=== PATIENT | male | born 1970 | race Caucasian/White ===

== ENCOUNTER 2018-02-03 09:35 | Emergency (ER) | payer MEDICAID ==
[2018-02-03] MEDS ORDERED: Sodium Chloride 0.9% 1,000 ML IV ONE ×3 (10:12→12:36)
[2018-02-03] MEDS ORDERED: (Novolin R) Insulin Human Regular 100 units/ml vial IV ONE ×3 (10:13→14:20)
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
[2018-02-03] MEDS ORDERED: Sodium Chloride 0.9% 2,000 ML ONE (11:00)
[2018-02-03] MEDS ORDERED: (Novolin R) Insulin Human Regular 100 units/ml vial ONE ×3 (11:00→14:38)
[2018-02-03 11:08] LABS: BASO % 0.9 % (0.0-2.0); EOS # 0.2 K/uL (0.0-0.7); HEMOGLOBIN 15.1 g/dL (12.0-18.0); LYMPH # 1.9 K/uL (1.0-4.3); LYMPH % 34.6 % (20.0-40.0); MEAN CELL VOLUME 90.7 fL (80.0-94.0); MEAN CORPUSCULAR HEMOGLOBIN 31.8 pg (27.0-31.0); MONO # 0.4 K/uL (0.0-0.8); MONO % 7.9 % (0.0-10.0); NEUT # 2.9 K/uL (1.8-7.0); NEUT % 52.6 % (50.0-75.0); NRBC % 0.1 % (0.0-2.0); RBC 4.74 Mil/uL (4.40-5.90); RED CELL DISTRIBUTION WIDTH 12.4 % (11.5-14.5); WHITE BLOOD COUNT 5.5 K/uL (4.8-10.8)
[2018-02-03 11:10] LABS: VENOUS BLOOD GAS BASE EXCESS -2.2 mmol/L (0.0-2.0); VENOUS BLOOD GAS PCO2 41 mmHg (40-60); VENOUS BLOOD GAS PO2 49 mm/Hg (30-55); VENOUS BLOOD PH 7.36 (7.32-7.43)
[2018-02-03 11:21] LABS: ALB/GLOB RATIO 1.4 (1.0-2.1); ALBUMIN 4.2 g/dL (3.5-5.0); ALT/SGPT 23 U/L (21-72); AST/SGOT 22 U/L (17-59); BLOOD UREA NITROGEN 11 mg/dL (9-20); CALCIUM 8.9 mg/dl (8.6-10.4); GFR AFRICAN-AMERICAN > 60; GFR NON-AFRICAN AMERICAN > 60
[2018-02-03 11:26] LABS: VENOUS BLOOD GAS BASE EXCESS -1.1 mmol/L (0.0-2.0); VENOUS BLOOD GAS PCO2 45 mmHg (40-60); VENOUS BLOOD GAS PO2 36 mm/Hg (30-55); VENOUS BLOOD PH 7.35 (7.32-7.43)
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
[2018-02-03] MEDS ORDERED: Sodium Chloride 0.9% 1,000 ML ONE (13:09)
[2018-02-03 14:37] VITALS: TEMP 98.1; O2SAT 97
[2018-02-03 14:44] LABS: VENOUS BLOOD GAS BASE EXCESS -3.3 mmol/L (0.0-2.0); VENOUS BLOOD GAS PCO2 40 mmHg (40-60); VENOUS BLOOD GAS PO2 68 mm/Hg (30-55); VENOUS BLOOD PH 7.35 (7.32-7.43)
[2018-02-03 16:52] VITALS: BP 145/84; PULSE 97; RESP 19
== END 2018-02-03 17:26 | disposition home or self-care (01) ==
LOC: C.ER 09:35
DX: S00.33XA Contusion of nose, initial encounter (principal); Y04.0XXA Assault by unarmed brawl or fight, initial encounter; S93.402A Sprain of unspecified ligament of left ankle, initial encounter; S46.912A Strain of unspecified muscle, fascia and tendon at shoulder and upper arm level, left arm, initial encounter; X58.XXXA Exposure to other specified factors, initial encounter; F10.229 Alcohol dependence with intoxication, unspecified; E11.65 Type 2 diabetes mellitus with hyperglycemia
CPT/HCPCS: 70450; 70486; 71046; 73030; 73610; 80053; 82009; 82803; 82948; 85025; 96361; 96374; 96376; 99285; J7040